=== PATIENT | female | born 1965 | race Caucasian/White ===

== ENCOUNTER 2018-02-04 13:20 | Emergency (ER) | payer OTHER ==
[~2018-02-04] VITALS: Ht 162.6 cm; Wt 121.6 kg
[2018-02-04 13:33] VITALS: Ht 162.6 cm; Wt 121.6 kg
[2018-02-04 15:19] VITALS: BP 135/83
== END 2018-02-04 15:19 | disposition home or self-care (01) ==
LOC: ED 13:20
DX: J02.9 Acute pharyngitis, unspecified (principal); I10 Essential (primary) hypertension
CPT/HCPCS: J0690; J1885; Q0162